=== PATIENT | male | born 1985 | race Two or more races ===

== ENCOUNTER 2025-08-25 23:38 | Emergency (ER) | payer MEDICAID ==
[~2025-08-25] VITALS: Ht 165.1 cm; Wt 62.1 kg
--- NOTE | 2025-08-26 00:04 | ED.PDOC ---
History of Present Illness HPI Comments 40-year-old male with recurrent ER visits for alcoholic intoxication presented to the ER with a chief complaint of intractable nausea for past 1 day. Patient reports his last drink was yesterday, he was seen in the ER earlier when his blood alcohol level was 420, he AMA, patient returns with similar reasons, reports intractable nausea but no vomiting. Reports chills but denies fever. Denies constipation or vomiting. Patient has resting tremors. Patient seen and examined, IV NS 1 L bolus, IV thiamine and folic supplemented. Supplemented Chief Complaint: ETOH Time Seen by MD: 23:47 Reviewed Notes: Nurses Notes Allergies: Coded Allergies: NO KNOWN ALLERGIES (Unverified , 08/25/25) Information Source: Patient Mode of Arrival: Ambulatory Past Medical History PAST MEDICAL HISTORY: Denies Past Medical History (Other): Alcoholic dependence Surgical History: Denies all surgeries Social History Smoker: Non-Smoker Alcohol: Heavy Drugs: Denies Drug Use Constitutional: reports: chills EENTM: denies: blurred vision, double vision, ear bleeding, ear discharge, ear drainage, ear pain, ear ringing, eye pain, eye redness, hearing loss, mouth pain, mouth swelling, nasal discharge, nose bleeding, nose congestion, nose pain, photophobia, tearing, throat pain, throat swelling, voice changes, others Respiratory: denies: cough, hemoptysis, orthopnea, SOB at rest, shortness of breath, SOB with excertion, stridor, wheezing, others Cardiovascular: reports: diaphoresis Gastrointestinal: reports: abdominal pain, nausea, poor appetite Genitourinary: denies: burning, dysuria, flank pain, frequency, hematuria, incontinence, penile discharge, penile sore, pain, testicle pain, testicle swelling, urgency, others Neurological: denies: dizziness, fainting, headache, left sided numbness, left sided weakness, numbness, paresthesia, pre-existing deficit, right sided n umbness, right sided weakness, seizure, speech problems, tingling, tremors, weakness, others Musculoskeletal: denies: back pain, gout, joint pain, joint swelling, muscle pain, muscle stiffness, neck pain, others Integumetry: denies: bruises, change in color, change in hair/nails, dryness, laceration, lesions, lumps, rash, wounds, others Allergic/Immunocompromised: denies: Difficulty Healing, Frequent Infections, Hives, Itching, others Hematologic/Lymphatic: denies: anemia, blood clots, easy bleeding, easy bruising, swollen glands, others Endocrine: denies: excessive hunger, excessive sweating, excessive thirst, excessive urination, flushing, intolerance to cold, intolerance to heat, unexplained weight gain, unexplained weight loss, others Psychiatric: denies: anxiety, bipolar disorder, depression, hopeless, panic disorder, schizophrenia, sleepless, suicidal, others Physical Exam General Appearance: Mild Distress, Normal HEENT: Normal ENT Inspection, Pharynx Normal, TMs Normal Neck: Full Range of Motion, Non-Tender, Normal, Normal Inspection Respiratory: Chest Non-Tender, Lungs Clear, No Accessory Muscle Use, No Respiratory Distress, Normal Breath Sounds Cardiovascular: No Edema, No JVD, No Murmur, No Gallop, Normal Peripheral Pulses, Regular Rate/Rhythm, Tachycardia Breast Exam: Deferred Gastrointestinal: No Organomegaly, Non Tender, No Pulsatile Mass, Normal Bowel Sounds, Soft Genitalia: Deferred Pelvic: Deferred Rectal: Deferred Extremities: No calf tenderness, Normal capillary refill, Normal inspection, No rmal range of motion, Non-tender, No pedal edema Musculoskeletal : Apperance: Normal Neurologic: Alert, broadcast operations manager II-XII nml as Tested, No Motor Deficits, Normal Affect, Normal Mood, No Sensory Deficits Cerebellar Function: Normal Reflexes: Normal Skin: Dry, Normal Color, Warm Lymphatic: No Adenopathy Was a procedure done? Was a procedure done?: No Differential Dx Considerations may include: Alcohol intoxication/withdrawal, gastritis, dyspepsia X-Ray, Labs, Meds, VS Vital Signs Date Time Temp Pulse Resp B/P (MAP) Pulse Ox O2 Delivery O2 Flow Rate FiO2 08/25/25 23:50 117 08/25/25 23:40 97.6 146 127/73 95 97.6 Lab Test 08/26/25 00:27 Range/Units White Blood Count 3.3 L 4.4-10.8 10^3/uL Red Blood Count 4.28 L 4.5-5.90 10^6/uL Hemoglobin 12.8 L 13.5-17.5 g/dL Hematocrit 37.5 L 41.0-53.0 % Mean Corpuscular Volume 87.7 80.0-100.0 fL Mean Corpuscular Hemoglobin 30.0 28.0-32.0 pg Mean Corpuscular Hemoglobin Concent 34.2 32.0-36.0 g/dL Red Cell Distribution Width 17.3 H 11.8-14.3 % Platelet Count 202 140-450 10^3/uL Mean Platelet Volume 6.7 L 6.9-10.8 fL Neutrophils (%) (Auto) 36.7 L 37.0-80.0 % Lymphocytes (%) (Auto) 50.6 H 10.0-50.0 % Monocytes (%) (Auto) 10.0 0.0-12.0 % Eosinophils (%) (Auto) 0.9 0.0-7.0 % Basophils (%) (Auto) 1.8 0.0-2.0 % Neutrophils # (Auto) 1.2 L 1.6-8.6 10 ^3/uL Lymphocytes # (Auto) 1.7 0.4-5.4 10 ^3/uL Monocytes # (Auto) 0.3 0-1.3 10 ^3/uL Eosinophils # (Auto) 0 0-0.8 10 ^3/uL Basophils # (Auto) 0.1 0-0.2 10 ^3/uL Nucleated Red Blood Cells 0.1 % Sodium Level 139 136-145 mmol/L Potassium Level 3.1 L 3.5-5.1 mmol/L Chloride Level 97 L 98-107 mmol/L Carbon Dioxide Level 22 20-31 mmol/L Anion Gap 20 H 5-15 Blood Urea Nitrogen < 5 L 9-23 mg/dL Creatinine 0.65 L 0.700-1.30 mg/dL Glomerular Filtration Rate Calc 122 >90 mL/min BUN/Creatinine Ratio 7.7 L 10.0-20.0 Serum Glucose 103 74-106 mg/dL Calcium Level 8.7 8.7-10.4 mg/dL Total Bilirubin 0.8 0.2-1.0 mg/dL Aspartate Amino Transferase (AST) 35 13-40 U/L Alanine Aminotransferase (ALT) 28 7-40 U/L Alkaline Phosphatase 109 46-116 U/L Troponin I High Sensitivity 15 </=54 ng/L Total Protein 7.9 5.7-8.2 g/dL Albumin 4.4 3.2-4.8 g/dL Plasma/Serum Blood Alcohol 202.1 H <10 mg/dL Images Reviewed?: Images reviewed and evaluated by me Time of 1ST Reevaluation: 03:00 Reevaluation 1ST: Improved Time of 2ND Reevaluation: 04:00 Reevaluation 2ND: Improved Patient Education/Counseling: Diagnosis, Treatment, Prognosis, Need For Follow Up Family Education/Counseling: No Family Present SEPSIS Sepsis Screen Date sepsis recognized/suspect: Aug 25, 2025 Time Sepsis recognized/suspect: 2343 Recent Procedure: No On Antibiotic Therapy: No Respiratory Rate >20: No Heart Rate >90: Yes Temp<36 C (96.8 F) or >38.3 C: No SBP <90 or MAP <65 mmHG: No New Acute Mental Status Change: No Is the patient on CPAP, BIPAP,: No Physician Orders Potassium Chl 20meq/100ml (08/26/25 03:30) Vital Signs Date Time Temp Pulse Resp B/P (MAP) Pulse Ox O2 Delivery O2 Flow Rate FiO2 08/25/25 23:50 117 08/25/25 23:40 97.6 146 127/73 95 97.6 Laboratory Tests Test 08/26/25 00:27 White Blood Count 3.3 10^3/uL (4.4-10.8) L Departure 1 Departure Time of Disposition: 07:00 Impression: Primary Impression: Alcohol abuse Disposition: 30 STILL A PATIENT Condition: Fair Referrals Patient counseled regarding alcohol cessation for more than 22 minutes Additional Instructions: Follow up with primary care physician Continue home medications including THIAMINE AND FOLIC SUPPLEMENTATION Drink plenty of fluids Discharged With: Self Critical Care Note Critical Care Time?: No Stability Stability form required: FREDDY Herbert RESIDENT Aug 26, 2025 00:04
[2025-08-26 01:00] LABS: Hematocrit 37.5 % (41.0-53.0); Hemoglobin 12.8 g/dL (13.5-17.5); Mean Corpuscular Hemoglobin 30.0 pg (28.0-32.0); Mean Corpuscular Volume 87.7 fL (80.0-100.0); Nucleated Red Blood Cells % 0.1 %
[2025-08-26 01:19] LABS: Alanine Aminotransferase 28 U/L (7-40); Albumin 4.4 g/dL (3.2-4.8); Alkaline Phosphatase 109 U/L (46-116); BUN/Creatinine Ratio 7.7 (10.0-20.0); Bilirubin, Total 0.8 mg/dL (0.2-1.0); Blood Urea Nitrogen < 5 mg/dL (9-23); Calcium 8.7 mg/dL (8.7-10.4); Carbon Dioxide 22 mmol/L (20-31); Glucose 103 mg/dL (74-106); Total Protein 7.9 g/dL (5.7-8.2)
[2025-08-26 01:49] LABS: Anion Gap 20 (5-15); Sodium 139 mmol/L (136-145)
[2025-08-26 01:59] LABS: Chloride 97 mmol/L (98-107); Potassium 3.1 mmol/L (3.5-5.1)
[2025-08-26] MEDS: POTASSIUM CHL 20MEQ/100ML 100 ML IV SCH ×2 (03:30→12:51)
--- NOTE | 2025-08-26 04:09 | ECG ---
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
[2025-08-26 06:34] VITALS: TEMP 98.3
[2025-08-26] MEDS: LORazepam 2MG/ML-1ML VIAL IM ONE (07:00)
[2025-08-26] MEDS: ONDANSETRON HCL 4 MG/2 ML VIAL IV ONE (07:14)
[2025-08-26] MEDS: SODIUM CHLORIDE 0.9% 1,000 ML IV ONE (07:14)
[2025-08-26] MEDS ORDERED: THIAMINE 100mg/ml INJ (200mg/2ml VIAL) IV ONE (07:15)
[2025-08-26] MEDS ORDERED: LORazepam 2MG/ML-1ML VIAL IV ONE (07:15)
[2025-08-26] MEDS: THIAMINE 100mg/ml INJ (200mg/2ml VIAL) IM ONE (09:29)
[2025-08-26] MEDS: FOLIC ACID 1 MG in D5W 5% 50 ML INJ ONE (10:00)
[2025-08-26 11:40] VITALS: PULSE 107; RESP 16; O2SAT 98
[2025-08-26 16:00] VITALS: BP 131/85; PULSE 92; RESP 14; O2SAT 98
== END 2025-08-26 19:40 | disposition home or self-care (01) ==
LOC: ER 23:38
DX: F10.229 Alcohol dependence with intoxication, unspecified (principal); Z79.899 Other long term (current) drug therapy; Y90.8 Blood alcohol level of 240 mg/100 ml or more
CPT/HCPCS: 36415; 80053; 80320; 84484; 85025; 93005; 96365; 96366; 96367; 96372; 96375; 99285; J2060; J2405; J3411; J3480; J7060

== ENCOUNTER 2025-10-24 17:52 | Emergency (ER) | payer MEDICAID ==
[~2025-10-24] VITALS: Ht 172.7 cm; Wt 72.7 kg
--- NOTE | 2025-10-24 18:05 | ECG ---
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
[2025-10-24 18:39] LABS: Hematocrit 44.1 % (41.0-53.0); Hemoglobin 14.8 g/dL (13.5-17.5); Mean Corpuscular Hemoglobin 29.5 pg (28.0-32.0); Mean Corpuscular Volume 87.7 fL (80.0-100.0); Nucleated Red Blood Cells % 0.1 %
[2025-10-24 18:43] VITALS: PULSE 110; RESP 17; O2SAT 95
--- NOTE | 2025-10-24 18:56 | ED.PDOC ---
History of Present Illness HPI Comments 40-year-old male who came to the ER for chest pains. Patient is homeless, seen here multiple times for alcohol intoxication. Apparently intoxicated alcohol again today, with complaining also of chest pains for the past few days. Chief Complaint: Chest Pain Time Seen by MD: 18:56 Reviewed Notes: Nurses Notes Allergies: Coded Allergies: NO KNOWN ALLERGIES (Unverified , 08/25/25) Information Source: Patient Mode of Arrival: EMS Past Medical History PAST MEDICAL HISTORY: Denies Surgical History: Denies all surgeries Social History Smoker: Non-Smoker Alcohol: Heavy Drugs: Denies Drug Use Lives In: Homeless Constitutional: denies: chills, diaphoresis, fatigue, fever, malaise, sweats, weakness, others EENTM: denies: blurred vision, double vision, ear bleeding, ear discharge, ear drainage, ear pain, ear ringing, eye pain, eye redness, hearing loss, mouth pain, mouth swelling, nasal discharge, nose bleeding, nose congestion, nose pain, photophobia, tearing, throat pain, throat swelling, voice changes, others Respiratory: denies: cough, hemoptysis, orthopnea, SOB at rest, shortness of breath, SOB with excertion, stridor, wheezing, others Cardiovascular: reports: chest pain; denies: dizzy spells, diaphoresis, Dyspnea on exertion, edema, irregular heart beat, left arm pain, lightheadedness, palpitations, PND, syncope, others Gastrointestinal: denies: abdomen distended, abdominal pain, blood streaked bowels, constipated, diarrhea, dysphagia, difficulty swallowing, hematemesis, melena, nausea, poor appetite, poor fluid intake, rectal bleeding, rectal pain, vomiting, others Genitourinary: denies: burning, dysuria, flank pain, frequency, hematuria, incontinence, penile discharge, penile sore, pain, testicle pain, testicle swelling, urgency, others Neurological: denies: dizziness, fainting, headache, left sided numbness, left sided weakness, numbness, paresthesia, pre-existing deficit, right sided numbness, right sided weakness, seizure, speech problems, tingling, tremors, weakness, others Musculoskeletal: denies: back pain, gout, joint pain, joint swelling, muscle pain, muscle stiffness, neck pain, others Integumetry: denies: bruises, change in color, change in hair/nails, dryness, laceration, lesions, lumps, rash, wounds, others Allergic/Immunocompromised: denies: Difficulty Healing, Frequent Infections, H danielle, Itching, others Hematologic/Lymphatic: denies: anemia, blood clots, easy bleeding, easy bruising, swollen glands, others Endocrine: denies: excessive hunger, excessive sweating, excessive thirst, excessive urination, flushing, intolerance to cold, intolerance to heat, unexplained weight gain, unexplained weight loss, others Psychiatric: reports: others (Intoxicated with alcohol); denies: anxiety, bipolar disorder, depression, hopeless, panic disorder, schizophrenia, sleepless, suicidal Physical Exam General Appearance: No Apparent Distress, Normal HEENT: Normal ENT Inspection, Pharynx Normal, TMs Normal Neck: Full Range of Motion, Non-Tender, Normal, Normal Inspection Respiratory: Chest Non-Tender, Lungs Clear, No Accessory Muscle Use, No Respiratory Distress, Normal Breath Sounds Cardiovascular: No Edema, No JVD, No Murmur, No Gallop, Normal Peripheral Pulses, Regular Rate/Rhythm Breast Exam: Deferred Gastrointestinal: No Organomegaly, Non Tender, No Pulsatile Mass, Normal Bowel Sounds, Soft Genitalia: Deferred Pelvic: Deferred Rectal: Deferred Extremities: No calf tenderness, Normal capillary refill, Normal inspection, Normal range of motion, Non-tender, No pedal edema Musculoskeletal : Apperance: Normal Neurologic: Alert, an/ssn 2 4 operator II-XII nml as Tested, No Motor Deficits, Normal Affect, Normal Mood, No Sensory Deficits Cerebellar Function: Normal Reflexes: Normal Skin: Dry, Normal Color, Warm Lymphatic: No Adenopathy Was a procedure done? Was a procedure done?: No EKG EKG : Pulse Rate (adult): 108 Cardiac Rhythm: ST Differential Dx Considerations may include: Anemia, electrolyte imbalance, chest pain, alcohol intoxication, homeless X-Ray, Labs, Meds, VS Vital Signs Date Time Temp Pulse Resp B/P (MAP) Pulse Ox O2 Delivery O2 Flow Rate FiO2 10/24/25 22:02 115 18 93/54 (67) 97 10/24/25 20:09 115 18 97 Room Air* 0 21 10/24/25 19:30 98.0 115 18 106/67 (80) 97 98.0 10/24/25 18:56 108 10/24/25 18:45 110 10/24/25 18:43 110 17 95 Room Air* 0 21 10/24/25 18:43 110 17 113/82 (92) 95 10/24/25 17:59 108 10/24/25 17:59 98.0 107 18 114/68 100 98.0 Lab Test 10/24/25 19:08 10/24/25 18:11 Range/Units Troponin I High Sensitivity 24 21 </=54 ng/L White Blood Count 4.8 4.4-10.8 10^3/uL Red Blood Count 5.03 4.5-5.90 10^6/uL Hemoglobin 14.8 13.5-17.5 g/dL Hematocrit 44.1 41.0-53.0 % Mean Corpuscular Volume 87.7 80.0-100.0 fL Mean Corpuscular Hemoglobin 29.5 28.0-32.0 pg Mean Corpuscular Hemoglobin Concent 33.6 32.0-36.0 g/dL Red Cell Distribution Width 16.3 H 11.8-14.3 % Platelet Count 331 140-450 10^3/uL Mean Platelet Volume 6.5 L 6.9-10.8 fL Neutrophils (%) (Auto) 39.5 37.0-80.0 % Lymphocytes (%) (Auto) 54.8 H 10.0-50.0 % Monocytes (%) (Auto) 4.3 0.0-12.0 % Eosinophils (%) (Auto) 0.5 0.0-7.0 % Basophils (%) (Auto) 0.9 0.0-2.0 % Neutrophils # (Auto) 1.9 1.6-8.6 10 ^3/uL Lymphocytes # (Auto) 2.6 0.4-5.4 10 ^3/uL Monocytes # (Auto) 0.2 0-1.3 10 ^3/uL Eosinophils # (Auto) 0 0-0.8 10 ^3/uL Basophils # (Auto) 0 0-0.2 10 ^3/uL Nucleated Red Blood Cells 0.1 % Sodium Level 146 H 136-145 mmol/L Potassium Level 4.3 3.5-5.1 mmol/L Chloride Level 105 98-107 mmol/L Carbon Dioxide Level 27 20-31 mmol/L Anion Gap 14 5-15 Blood Urea Nitrogen 13 9-23 mg/dL Creatinine 0.97 0.700-1.30 mg/dL Glomerular Filtration Rate Calc 101 >90 mL/min BUN/Creatinine Ratio 13.4 10.0-20.0 Serum Glucose 117 H 74-106 mg/dL Calcium Level 9.3 8.7-10.4 mg/dL Total Bilirubin 0.3 0.2-1.0 mg/dL Aspartate Amino Transferase (AST) 100 H 13-40 U/L Alanine Aminotransferase (ALT) 56 H 7-40 U/L Alkaline Phosphatase 102 46-116 U/L B-Type Natriuretic Peptide 40.01 0-100 pg/mL Total Protein 7.8 5.7-8.2 g/dL Albumin 4.5 3.2-4.8 g/dL CHEST RADIOGRAPH Indication: chest pain Technique: Single frontal view of the chest was obtained Comparison: XY CHEST PORTABLE on DOS: 07/19/25, XY CHEST XRAY 1 VIEW on DOS: 07/01/25, XY CHEST PORTABLE on DOS: 06/17/25 FINDINGS: Lines and Tubes: None Lungs: No focal consolidation. Pleura: No effusion. No pneumothorax. Cardiomediastinal contours: Unremarkable Bones: No acute osseous abnormality. IMPRESSION: 1. No acute cardiopulmonary disease. Time of 1ST Reevaluation: 18:48 Reevaluation 1ST: Unchanged Patient Education/Counseling: Diagnosis, Treatment Family Education/Counseling: No Family Present SEPSIS Sepsis Screen Date sepsis recognized/suspect: Oct 24, 2025 Time Sepsis recognized/suspect: 1843 Recent Procedure: No On Antibiotic Therapy: No Respiratory Rate >20: No Heart Rate >90: Yes Temp<36 C (96.8 F) or >38.3 C: No SBP <90 or MAP <65 mmHG: No New Acute Mental Status Change: No Is the patient on CPAP, BIPAP,: No Physician Orders Chest Xray 1 View (10/24/25 18:02) * Core Baker Consult (10/24/25 ) Vital Signs Date Time Temp Pulse Resp B/P (MAP) Pulse Ox O2 Delivery O2 Flow Rate FiO2 10/24/25 22:02 115 18 93/54 (67) 97 10/24/25 20:09 115 18 97 Room Air* 0 21 10/24/25 19:30 98.0 115 18 106/67 (80) 97 98.0 10/24/25 18:56 108 10/24/25 18:45 110 10/24/25 18:43 110 17 95 Room Air* 0 21 10/24/25 18:43 110 17 113/82 (92) 95 10/24/25 17:59 108 10/24/25 17:59 98.0 107 18 114/68 100 98.0 Laboratory Tests Test 10/24/25 18:11 White Blood Count 4.8 10^3/uL (4.4-10.8) Departure 1 Departure Time of Disposition: 20:40 Impression: Primary Impression: Atypical chest pain Additional Impression: Alcohol abuse Disposition: HOME / SELF CARE / HOMELESS Condition: Stable Discharged With: Self Critical Care Note Critical Care Time?: No Stability Stability form required: No Heart Score Heart Score: Heart Score Response (Comments) Value History Slightly Suspicious 0 EKG Normal 0 Age <45 0 Risk Factors No known risk factors 0 Troponin Normal limit 0 Total 0 I personally scribed for FRANCISCO J BETH MD ([email or web address]) on 10/24/25 at 18:56. Electronically submitted by Lai Limon ([email or web address]). I personally scribed for FRNACISCO J BETH MD ([email or web address]) on 10/24/25 at 19:35. Electronically submitted by Lai Limon ([email or web address]). FRANCISCO J BETH MD Oct 24, 2025 18:56
--- NOTE | 2025-10-24 19:01 | DVH ---
CHEST RADIOGRAPH Indication: chest pain Technique: Single frontal view of the chest was obtained Comparison: XY CHEST PORTABLE on DOS: 07/19/25, XY CHEST XRAY 1 VIEW on DOS: 07/01/25, XY CHEST PORTABLE on DOS: 06/17/25 FINDINGS: Lines and Tubes: None Lungs: No focal consolidation. Pleura: No effusion. No pneumothorax. Cardiomediastinal contours: Unremarkable Bones: No acute osseous abnormality. IMPRESSION: 1. No acute cardiopulmonary disease.
[2025-10-24 19:10] LABS: Albumin 4.5 g/dL (3.2-4.8); Alkaline Phosphatase 102 U/L (46-116); Anion Gap 14 (5-15); BUN/Creatinine Ratio 13.4 (10.0-20.0); Blood Urea Nitrogen 13 mg/dL (9-23); Calcium 9.3 mg/dL (8.7-10.4); Carbon Dioxide 27 mmol/L (20-31); Chloride 105 mmol/L (98-107); Potassium 4.3 mmol/L (3.5-5.1); Total Protein 7.8 g/dL (5.7-8.2)
[2025-10-24 19:11] LABS: Bilirubin, Total 0.3 mg/dL (0.2-1.0)
[2025-10-24 19:12] LABS: Alanine Aminotransferase 56 U/L (7-40); Glucose 117 mg/dL (74-106); Sodium 146 mmol/L (136-145)
[2025-10-24 19:30] VITALS: TEMP 98
[2025-10-24 20:09] VITALS: PULSE 115; RESP 18; O2SAT 97
[2025-10-24 22:02] VITALS: BP 93/54; PULSE 115; RESP 18; O2SAT 97
== END 2025-10-24 22:12 | disposition home or self-care (01) ==
LOC: EDBD 17:52 → EDUNIT# 17:52 → ER 17:52
DX: R07.89 Other chest pain (principal); F10.129 Alcohol abuse with intoxication, unspecified; R06.02 Shortness of breath; Y90.9 Presence of alcohol in blood, level not specified
CPT/HCPCS: 36415; 71045; 80053; 83880; 84484; 85025; 93005